=== PATIENT | female | born 1955 | race Asian ===

== ENCOUNTER 2016-09-13 02:51 | Emergency (ER) | payer OTHER ==
[2016-09-13 04:24] LABS: BASOPHIL % 0.1 % (0-2); RED CELL DISTRIBUTION WIDTH 12.4 % (11.5-14.5)
[2016-09-13 04:28] LABS: CALCIUM 8.6 mg/dL (8.5-10.1); CARBON DIOXIDE 26.2 mmol/L (21-32); POTASSIUM SERUM 4.1 mmol/L (3.5-5.1)
[2016-09-13 04:30] LABS: PLATELET COUNT 438 x10^3mcL (130-400)
[2016-09-13 04:33] LABS: ALBUMIN 3.7 g/dL (3.4-5.0); BILIRUBIN TOTAL 0.77 mg/dL (0.20-1.00); TOTAL PROTEIN, SERUM 7.1 g/dL (6.4-8.2)
[2016-09-13 04:56] LABS: microscopic required? YES; urine erythrocyte NEGATIVE (NEGATIVE)
[2016-09-13 06:19] VITALS: BP 122/87
== END 2016-09-13 06:19 | disposition home or self-care (01) ==
LOC: ED 02:51
PROVIDERS: Emergency Medicine
DX: K21.9 Gastro-esophageal reflux disease without esophagitis (principal)
CPT/HCPCS: 83880; C9113; J1885; J2405; J2765; Q0092